=== PATIENT | male | born 1980 | race Caucasian/White ===

== ENCOUNTER 2016-12-21 16:37 | Emergency (ER) | payer OTHER ==
--- NOTE | 2016-12-28 21:25 | ER ---
ADMIT: 12/21/2016 RM/LOC: ER [facility] MR#: [id number] [address] [address] [address] [place] [id number] Emergency Room Report SEX: M AGE: 36 : 1980 DATE: 12/21/2016 CHIEF COMPLAINT: Toothache. HISTORY OF PRESENT ILLNESS: This is a pleasant 36-year-old male, who presents to the ER for evaluation of some tooth pain. Patient states this morning he began having some pain in his lower jaw around a tooth that has previously been fractured. The patient states in the last year he has had to have 7 teeth removed secondary to poor dental health. Last year, he was admitted secondary to dental infection causing sepsis. He is to see Dr. Guzman, a dentist next week to have this tooth removed. The patient states he has this appointment scheduled for next Thursday. Currently, he denies any fever, chills, sore throat, runny nose, congestion, cough, earache, jaw pain, neck swelling, or neck pain. He states pain is worse with chewing, and he has tried to use ibuprofen today for pain control. PAST MEDICAL HISTORY: Significant for insulin-dependent type 1 diabetes, as well as gastroesophageal reflux disease. SOCIAL HISTORY: He does smoke one pack per day. COURSE IN THE EMERGENCY ROOM: The patient was seen and examined, significant for overall poor dentition with multiple missing teeth on the upper maxilla. The lower tooth #25 is fractured in the midline. No evidence of abscess at this time. PROCEDURE: I did perform a mental nerve block on the patient for pain. The area was anesthetized with a lidocaine lolli and then injected bilaterally about this second premolar with 2 mL of bupivacaine in each site. The patient states he had immediate relief of his pain. ADMIT: 12/21/2016 RM/LOC: ER [facility] MR#: [id number] [address] [address] [address] [place] [phone] Emergency Room Report SEX: M AGE: 36 : 1980 IMPRESSION: Fractured tooth #25, tooth ache. DISPOSITION: Patient was given a prescription for clindamycin 300 mg p.o. t.i.d. for five days as well as a script for Walnut 5/325 one to two tabs p.o. q.4-6 hours as needed for pain #15. He is to keep his appointment with his dentist on Thursday to have this tooth removed. He is to monitor for any worsening signs and symptoms to include fever, neck swelling, or other concerns for infection. He continues to use ibuprofen as needed for pain. He was instructed not to drive, operate heavy machinery, or make important decisions while using narcotics. He can use ice as needed to the jaw for pain. He was discharged from the department in stable condition. CLAUDETTE Coleman / Shaw Rogers MD / yousif JOB #: [id number] CC: Shaw Rogers MD, Attending Physician Toshia Gtz MD, Family Physician
== END 2016-12-21 17:30 | disposition home or self-care (01) ==
LOC: ER 16:37
PROC: 3E0T3BZ Introduction of Anesthetic Agent into Peripheral Nerves and Plexi, Percutaneous Approach (ICD-10-PCS; principal; 2016-12-21)
DX: S02.5XXA Fracture of tooth (traumatic), initial encounter for closed fracture (principal); E11.9 Type 2 diabetes mellitus without complications; F17.210 Nicotine dependence, cigarettes, uncomplicated; X58.XXXA Exposure to other specified factors, initial encounter

== ENCOUNTER 2016-12-23 16:45 | Emergency (ER) | payer OTHER ==
--- NOTE | 2017-01-10 21:34 | ER ---
ADMIT: 12/23/2016 RM/LOC: ER [facility] MR#: [id number] [address] [address] [address] [place] [phone] Emergency Room Report SEX: M AGE: 36 : 1980 DATE: 12/23/2016 ADDENDUM: CHIEF COMPLAINT: Questionable fever and tooth pain. HISTORY OF PRESENT ILLNESS: This is a diabetic, who has known multiple dental caries. He is awaiting to have all his teeth pulled. He was here in the ER 2 days ago, was started on clindamycin and hydrocodone. He says he feels like he has become a little bit worse instead of better. I did a lab work. I did a CBC that showed a normal white count of 9.9, hemoglobin 12.7, hematocrit 39.3, lactic acid was 1.6. BMP is normal except for a glucose of 275. CLINICAL IMPRESSION: Multiple dental caries with gingivitis, early abscess to that area. Since he is diabetic, I told him he is definitely at high risk for infections especially with his blood sugars high. I told him that he needs to be really good about keeping his blood sugars down to help himself heal. I gave him 2 g Rocephin here. I have him continue the clindamycin. I did tell him that I suggested doing a CT of the jaw just to make sure he is not developing an early Se's or worsening abscess. He refuses any kind of imaging at this time. Just says he wants to continue and try the antibiotics, and he will return if worsen. Clinical impression again is dental caries with gingivitis, early periodontal abscess, and diabetes. CLAUDETTE Hernandez / Naeem Gomez MD / saadl JOB #: [id number] CC: Shaw Rogers MD, Attending Physician Cesar Brar MD, Family Physician
== END 2016-12-23 21:00 | disposition home or self-care (01) ==
LOC: ER 16:45
DX: K05.219 Aggressive periodontitis, localized, unspecified severity (principal); K05.00 Acute gingivitis, plaque induced; K02.9 Dental caries, unspecified; E11.9 Type 2 diabetes mellitus without complications